=== PATIENT | male | born 1970 | race Caucasian/White ===

== ENCOUNTER 2017-01-26 18:44 | Emergency (ER) | payer BC ==
[2017-01-26] MEDS ORDERED: COLCHICINE 0.6 MG TAB PO STA ×2 (19:59→21:07)
[2017-01-26] MEDS ORDERED: ACETAMINOPHEN TAB 500 MG TAB PO STA (20:00)
[2017-01-26 20:24] LABS: Basophils % (A) 0 %; CH 33.7; CHCM 33.7; Eosinophils # (A) 0.1 k/uL (0-0.7); Eosinophils % (A) 1 %; HCT 42.4 % (39.0-53.0); HDW 2.44; HGB 14.3 gm/dL (13.0-17.5); Luc # (Auto) 0.09; Luc % (Auto) 1; Lymphocytes # (A) 0.9 k/uL (1.0-4.8); Lymphocytes % (A) 8 %; MCH 33.8 pg (25.0-35.0); MCHC 33.7 g/dL (31.0-37.0); MCV 100.2 fL (80.0-100.0); Macrocytosis Slight; Mean Platelet Volume 7.1; Monocytes # (A) 0.6 k/uL (0-1.0); Monocytes % (A) 5 %; Neutrophils # (A) 9.6 k/uL (1.3-7.7); Neutrophils % (A) 85 %; RBC 4.23 m/uL (4.30-5.90); WBC 11.3 k/uL (3.8-10.6); WBC (Perox) 11.42
--- NOTE | 2017-01-26 20:25 | XR ---
EXAMINATION TYPE: XR foot complete RT DATE OF EXAM: 01/26/2017 8:18 PM CLINICAL HISTORY: pain TECHNIQUE: Frontal, lateral and oblique images of the right foot are obtained. COMPARISON: None. FINDINGS: There is no acute fracture/dislocation evident. Degenerative narrowing first metatarsophal angeal joint. Dorsal soft tissue swelling noted. IMPRESSION: There is no acute fracture or dislocation. ICD 10 NO FRACTURE, INITIAL EVALUATION
[2017-01-26 20:41] LABS: ALT 26 U/L (21-72); AST 15 U/L (17-59); Alkaline Phosphatase 53 U/L (38-126); Anion Gap 8 mmol/L; Blood Urea Nitrogen 16 mg/dL (9-20); C Reactive Protein 41.9 mg/L (<10.0); Calcium 9.4 mg/dL (8.4-10.2); Carbon Dioxide 28 mmol/L (22-30); Chloride 106 mmol/L (98-107); Glucose 106 mg/dL (74-99); Non-African American GFR(MDRD) >60 (>60 ml/min/1.73 sqM); Potassium 4.4 mmol/L (3.5-5.1); Sodium 142 mmol/L (137-145); Total Bilirubin 0.4 mg/dL (0.2-1.3); Total Protein 6.6 g/dL (6.3-8.2); Uric Acid 3.4 mg/dL (3.5-8.5)
[2017-01-26] MEDS ORDERED: KETOROLAC 30 MG/ML 1 ML VIAL IVP STA (21:08)
--- NOTE | 2017-01-26 21:08 | ED ---
Extremity Problem HPI - General Chief complaint: Extremity Problem,Nontraumatic Stated complaint: Rt foot pain Time Seen by Provider: 01/26/17 19:36 Source: patient Mode of arrival: ambulatory Limitations: physical limitation - History of Present Illness Initial comments: 36-year-old male patient presents to emergency department today for complaints of right foot pain. He states pain and swelling started in the right great toe on Tuesday. Patient states that he was seen at urgent care on Tuesday and diagnosed with gout. He states he has been taking indomethacin 3 times daily, the symptoms did start to improve, but worsened today. Patient states the area is now hot to touch, more painful, and he has increased swelling that now encompasses all of the toes on his right foot. She denies any known fever or chills. Denies any chest pain, back pain, shortness of breath, cough, congestion, sore throat, hematuria, dysuria, urinary frequency, urinary urgency. Patient denies any history of gout or similar symptoms. Denies any alcohol use. - Related Data Home Medications Medication Instructions Recorded Confirmed Indomethacin [Indocin] 50 mg PO TID 01/26/17 01/26/17 Previous Rx's Medication Instructions Recorded Cephalexin [Keflex] 500 mg PO Q6HR #28 cap 01/26/17 Hydrocodone/Acetaminophen [[place] 1 tab PO Q6HR PRN #20 tab 01/26/17 5-325] Allergies Allergy/AdvReac Type Severity Reaction Status Date / Time No Known Allergies Allergy Verified 01/26/17 19:48 Review of Systems ROS Statement: Those systems with pertinent positive or pertinent negative responses have been documented in the HPI. ROS Other: All systems not noted in ROS Statement are negative. Past Medical History Additional Past Medical History / Comment(s): gout History of Any Multi-Drug Resistant Organisms: None Reported Past Surgical History: Orthopedic Surgery Additional Past Surgical History / Comment(s): right shoulder Past Psychological History: No Psychological Hx Reported Smoking Status: Current every day smoker Past Alcohol Use History: None Reported Past Drug Use History: None Reported General Exam Limitations: physical limitation General appearance: alert, in no apparent distress Eye exam: Present: normal appearance, PERRL, EOMI. Absent: scleral icterus, conjunctival injection, periorbital swelling ENT exam: Present: normal exam, normal oropharynx, mucous membranes moist Neck exam: Present: normal inspection. Absent: tenderness, meningismus, lymphadenopathy Respiratory exam: Present: normal lung sounds bilaterally. Absent: respiratory distress, wheezes, rales, rhonchi, stridor Cardiovascular Exam: Present: regular rate, normal rhythm, normal heart sounds. Absent: systolic murmur, diastolic murmur, rubs, gallop, clicks GI/Abdominal exam: Present: soft, normal bowel sounds. Absent: distended, tenderness, guarding, rebound, rigid Extremities exam: Present: normal inspection, full ROM, tenderness (Over the right first MTP joint), normal capillary refill, other (Right foot swelling, erythema, tenderness, mostly over the right first MTP joint.). Absent: pedal edema, joint swelling, calf tenderness Back exam: Present: normal inspection Neurological exam: Present: alert, oriented X3, CN II-XII intact Psychiatric exam: Present: normal affect, normal mood Skin exam: Present: warm, dry, intact, normal color. Absent: rash Course Vital Signs 01/26/17 01/26/17 18:57 20:37 Temperature 100.2 F H 100.4 F H Pulse Rate 93 Respiratory 20 Rate Blood Pressure 134/70 O2 Sat by Pulse 99 Oximetry Medical Decision Making - Medical Decision Making 46-year-old male patient presented to emergency department today for evaluation of right foot pain, swelling, and redness. X-ray of the right foot revealed no acute bony abnormalities. White blood cell, was elevated at 11.3. Uric acid level was low. Given Colcrys here states that his symptoms did improve somewhat. Patient will be given another dose of colcrys, he will be discharged home with instructions to continue the indomethacin as well as complete the prescription for antibiotics. Patient instructed to follow up with his primary care physician in one to 2 days for recheck. Patient instructed to return for new, worsening, or concerning symptoms. - Lab Data Result diagrams: 01/26/17 20:11 01/26/17 20:11 Lab Results 01/26/17 01/26/17 Range/Units 20:11 20:11 WBC 11.3 H (3.8-10.6) k/uL RBC 4.23 L (4.30-5.90) m/uL Hgb 14.3 (13.0-17.5) gm/dL Hct 42.4 (39.0-53.0) % MCV 100.2 H (80.0-100.0) fL MCH 33.8 (25.0-35.0) pg MCHC 33.7 (31.0-37.0) g/dL RDW 14.0 (11.5-15.5) % Plt Count 205 (150-450) k/uL Neutrophils % 85 % Lymphocytes % 8 % Monocytes % 5 % Eosinophils % 1 % Basophils % 0 % Neutrophils # 9.6 H (1.3-7.7) k/uL Lymphocytes # 0.9 L (1.0-4.8) k/uL Monocytes # 0.6 (0-1.0) k/uL Eosinophils # 0.1 (0-0.7) k/uL Basophils # 0.0 (0-0.2) k/uL Macrocytosis Slight Sodium 142 (137-145) mmol/L Potassium 4.4 (3.5-5.1) mmol/L Chloride 106 (98-107) mmol/L Carbon Dioxide 28 (22-30) mmol/L Anion Gap 8 mmol/L BUN 16 (9-20) mg/dL Creatinine 1.10 (0.66-1.25) mg/dL Est GFR (MDRD) Af Amer >60 (>60 ml/min/1.73 sqM) Est GFR (MDRD) Non-Af >60 (>60 ml/min/1.73 sqM) Glucose 106 H (74-99) mg/dL Uric Acid 3.4 L (3.5-8.5) mg/dL Calcium 9.4 (8.4-10.2) mg/dL Total Bilirubin 0.4 (0.2-1.3) mg/dL AST 15 L (17-59) U/L ALT 26 (21-72) U/L Alkaline Phosphatase 53 (38-126) U/L C-Reactive Protein 41.9 H (<10.0) mg/L Total Protein 6.6 (6.3-8.2) g/dL Albumin 3.8 (3.5-5.0) g/dL Disposition Clinical Impression: Gout, Cellulitis of right foot Disposition: HOME SELF-CARE Condition: Stable Instructions: Low Purine Diet (ED), Gout (ED) Additional Instructions: Please return to the Emergency Department if symptoms worsen or any other concerns. Prescriptions: Cephalexin [Keflex] 500 mg PO Q6HR #28 cap Hydrocodone/Acetaminophen [[place] 5-325] 1 tab PO Q6HR PRN #20 tab PRN Reason: Pain Referrals: None,Stated [Primary Care Provider] - 1-2 days Time of Disposition: 21:07
[2017-01-26 21:30] VITALS: BP 109/63; PULSE 88; RESP 16; TEMP 98.3
== END 2017-01-26 21:31 | disposition home or self-care (01) ==
LOC: EC 18:44
DX: M10.9 Gout, unspecified (principal); L03.115 Cellulitis of right lower limb; F17.200 Nicotine dependence, unspecified, uncomplicated; Z79.1 Long term (current) use of non-steroidal anti-inflammatories (NSAID)
CPT/HCPCS: 36415; 80053; 84550; 85025; 86140; 73630; 99283; 96374; J1885

== ENCOUNTER 2017-01-30 21:24 | Emergency (ER) | payer BC ==
[2017-01-30 22:06] VITALS: RESP 18
[2017-01-31] MEDS ORDERED: SODIUM CHLORIDE 0.9% 1,000 ML IV STA (00:18)
[2017-01-31] MEDS ORDERED: HYDROmorphone 1 MG/ML 1 ML SYRINGE IVP STA (00:19)
[2017-01-31] MEDS ORDERED: methylPREDNISolone SOD SUCCI 125 MG/2 ML VIAL IV STA (00:21)
[2017-01-31 00:51] LABS: Basophils # (A) 0.1 k/uL (0-0.2); Basophils % (A) 1 %; CH 33.2; CHCM 33.5; Eosinophils # (A) 0.3 k/uL (0-0.7); Eosinophils % (A) 3 %; HCT 41.5 % (39.0-53.0); HDW 2.46; HGB 13.9 gm/dL (13.0-17.5); Luc # (Auto) 0.12; Luc % (Auto) 1; Lymphocytes # (A) 1.4 k/uL (1.0-4.8); Lymphocytes % (A) 15 %; MCH 33.4 pg (25.0-35.0); MCHC 33.5 g/dL (31.0-37.0); MCV 99.5 fL (80.0-100.0); Monocytes # (A) 0.5 k/uL (0-1.0); Monocytes % (A) 6 %; Neutrophils # (A) 6.9 k/uL (1.3-7.7); Neutrophils % (A) 75 %; RBC 4.17 m/uL (4.30-5.90); RDW 13.7 % (11.5-15.5); WBC 9.2 k/uL (3.8-10.6)
[2017-01-31 00:59] LABS: ALT 25 U/L (21-72); AST 15 U/L (17-59); Alkaline Phosphatase 60 U/L (38-126); Anion Gap 11 mmol/L; Blood Urea Nitrogen 13 mg/dL (9-20); Calcium 9.5 mg/dL (8.4-10.2); Carbon Dioxide 28 mmol/L (22-30); Chloride 104 mmol/L (98-107); Glucose 99 mg/dL (74-99); Non-African American GFR(MDRD) >60 (>60 ml/min/1.73 sqM); Potassium 4.1 mmol/L (3.5-5.1); Sodium 143 mmol/L (137-145); Total Bilirubin 0.4 mg/dL (0.2-1.3); Total Protein 6.7 g/dL (6.3-8.2)
--- NOTE | 2017-01-31 01:11 | ED ---
Extremity Problem HPI - General Chief complaint: Extremity Problem,Nontraumatic Stated complaint: revisit gout Time Seen by Provider: 01/30/17 23:47 Source: patient, RN notes reviewed, old records reviewed Mode of arrival: ambulatory Limitations: no limitations - History of Present Illness Initial comments: Patient is a 46 year old male with chief compplaint of left great toe and foot swelling for one week. Patient was diagnosed with gout, placed on indomethacin, colchrys, norco and naprosyn. Patient reports that it is not improving. Patient states that he has not been able to walk because of the pain. Patient states that he has been treated in the ED, as welll as urgent care initially. PAtient had lab work and was also placed on keflex for concern of possible infection due to mildly elevated WBC. PAtient denies any fever or other associated sympotms besides the foot pain. - Related Data Home Medications Medication Instructions Recorded Confirmed Indomethacin [Indocin] 50 mg PO TID 01/26/17 01/26/17 Previous Rx's Medication Instructions Recorded Cephalexin [Keflex] 500 mg PO Q6HR #28 cap 01/26/17 Hydrocodone/Acetaminophen [[place] 1 tab PO Q6HR PRN #20 tab 01/26/17 5-325] HYDROcodone/APAP 10-325MG [[place] 1 tab PO Q6H PRN #20 tab 01/31/17 10-325] predniSONE 60 mg PO DAILY #7 tab 01/31/17 Allergies Allergy/AdvReac Type Severity Reaction Status Date / Time No Known Allergies Allergy Verified 01/30/17 22:06 Review of Systems ROS Statement: Those systems with pertinent positive or pertinent negative responses have been documented in the HPI. ROS Other: All systems not noted in ROS Statement are negative. Past Medical History Additional Past Medical History / Comment(s): gout History of Any Multi-Drug Resistant Organisms: None Reported Past Surgical History: Orthopedic Surgery Additional Past Surgical History / Comment(s): right shoulder Past Psychological History: No Psychological Hx Reported Smoking Status: Current every day smoker Past Alcohol Use History: None Reported Past Drug Use History: None Reported General Exam - General Exam Comments Initial Comments: Pleasant 46 year ol dmale, no distress. Limitations: no limitations General appearance: alert Head exam: Present: atraumatic, normocephalic, normal inspection Eye exam: Present: normal appearance, PERRL, EOMI. Absent: scleral icterus, conjunctival injection, periorbital swelling ENT exam: Present: normal exam, mucous membranes moist Neck exam: Present: normal inspection. Absent: tenderness, meningismus, lymphadenopathy Respiratory exam: Present: normal lung sounds bilaterally. Absent: respiratory distress, wheezes, rales, rhonchi, stridor Cardiovascular Exam: Present: regular rate, normal rhythm, normal heart sounds. Absent: systolic murmur, diastolic murmur, rubs, gallop, clicks GI/Abdominal exam: Present: soft, normal bowel sounds. Absent: distended, tenderness, guarding, rebound, rigid Extremities exam: Present: normal inspection, full ROM, normal capillary refill , other (left great toe swelling and erythema. Swelling extends up to dorsum of foot. ). Absent: tenderness, pedal edema, joint swelling, calf tenderness Back exam: Present: normal inspection Neurological exam: Present: alert, oriented X3, CN II-XII intact Psychiatric exam: Present: normal affect, normal mood Skin exam: Present: warm, dry, intact, normal color. Absent: rash Course Vital Signs 01/30/17 01/31/17 22:02 02:07 Temperature 99.1 F 97.9 F Pulse Rate 80 65 Respiratory 18 18 Rate Blood Pressure 117/75 116/75 O2 Sat by Pulse 96 97 Oximetry Medical Decision Making - Medical Decision Making Patient is a 46 year old male with a revisit for gout. Labs obtained, WBC is in normal limits, uric acid is also low. Patient has clnical symptoms of gout. Patient is currently on colchys and naprosyn. Patient given IV solumedrol, and discussed case withDr. Hickey. Less concerned for signs of infection. Patient will be discharged with orthopedic referrral and steroids to add to colchys, naprosyn, norco. PAtient agrees with treatment plan and will comply, return parameters discussed. - Lab Data Result diagrams: 01/31/17 00:42 01/31/17 00:42 Lab Results 01/31/17 01/31/17 Range/Units 00:42 00:42 WBC 9.2 (3.8-10.6) k/uL RBC 4.17 L (4.30-5.90) m/uL Hgb 13.9 (13.0-17.5) gm/dL Hct 41.5 (39.0-53.0) % MCV 99.5 (80.0-100.0) fL MCH 33.4 (25.0-35.0) pg MCHC 33.5 (31.0-37.0) g/dL RDW 13.7 (11.5-15.5) % Plt Count 259 (150-450) k/uL Neutrophils % 75 % Lymphocytes % 15 % Monocytes % 6 % Eosinophils % 3 % Basophils % 1 % Neutrophils # 6.9 (1.3-7.7) k/uL Lymphocytes # 1.4 (1.0-4.8) k/uL Monocytes # 0.5 (0-1.0) k/uL Eosinophils # 0.3 (0-0.7) k/uL Basophils # 0.1 (0-0.2) k/uL Sodium 143 (137-145) mmol/L Potassium 4.1 (3.5-5.1) mmol/L Chloride 104 (98-107) mmol/L Carbon Dioxide 28 (22-30) mmol/L Anion Gap 11 mmol/L BUN 13 (9-20) mg/dL Creatinine 1.00 (0.66-1.25) mg/dL Est GFR (MDRD) Af Amer >60 (>60 ml/min/1.73 sqM) Est GFR (MDRD) Non-Af >60 (>60 ml/min/1.73 sqM) Glucose 99 (74-99) mg/dL Uric Acid 3.0 L (3.5-8.5) mg/dL Calcium 9.5 (8.4-10.2) mg/dL Total Bilirubin 0.4 (0.2-1.3) mg/dL AST 15 L (17-59) U/L ALT 25 (21-72) U/L Alkaline Phosphatase 60 (38-126) U/L Total Protein 6.7 (6.3-8.2) g/dL Albumin 3.7 (3.5-5.0) g/dL Disposition Clinical Impression: Gout of right foot Disposition: HOME SELF-CARE Condition: Good Instructions: Gout (ED) Additional Instructions: Patient advised to follow-up with orthopedic physician in 1-2 days.. Complete course of steroids, continue to take colchrys, naproxen and pain medicine. Return to the emergency department if any alarming signs or symptoms occur. Prescriptions: HYDROcodone/APAP 10-325MG [[place] 10-325] 1 tab PO Q6H PRN #20 tab PRN Reason: Pain predniSONE 60 mg PO DAILY #7 tab Referrals: None,Stated [Primary Care Provider] - 1-2 days Rodney Montgomery MD [STAFF PHYSICIAN] - 1-2 days Time of Disposition: 01:45
[2017-01-31 02:08] VITALS: BP 116/75; PULSE 65; TEMP 97.9
== END 2017-01-31 02:07 | disposition home or self-care (01) ==
LOC: EC 21:24
DX: M10.9 Gout, unspecified (principal); F17.200 Nicotine dependence, unspecified, uncomplicated; Z79.899 Other long term (current) drug therapy
CPT/HCPCS: 99284; 96374; 96375; 96361; 36415; 80053; 84550; 85025; J2930; J1170